=== PATIENT | female | born 1960 | race Caucasian/White ===

== ENCOUNTER → 2020-09-23 | Outpatient (CLI) | payer OTHER ==
[~2020-09-23] MED LIST: ALBU90OI6; ALBU90OI61 INH; AZIT250 PO; ESCI10 PO; FLORADIL; FLUSAL2505 INH; FLUT220OIA; LISI20 PO; LISI5; PRED10 PO; PRIM50; [UNRECOGNIZED DRUG - OTHER]; [UNRECOGNIZED DRUG - OTHER]
== END ==
LOC: LAB SHORT 16:56 → LAB EV 16:56
DX: S41.102A Unspecified open wound of left upper arm, initial encounter (principal)
CPT/HCPCS: 87070; 87075; 87077; 87186; 87205

== ENCOUNTER 2021-12-20 18:12 | Emergency (ER) | payer OTHER ==
[~2021-12-20] VITALS: Ht 160 cm; Wt 113.8 kg
[~2021-12-20 18:12] MED LIST changes: -ALBU90OI INH; -CYCLOBENZAPRINE5 MG PO; -LIDO700A20 TOP
[2021-12-21] MEDS ORDERED: CYCLOBENZAPRINE5 MG PO ×2 (00:49→00:53)
[2021-12-21] MEDS ORDERED: LIDO700A20 TOP ×2 (00:49→00:53)
[2021-12-21] MEDS ORDERED: ALBU90OI INH ×2 (00:49→00:53)
[2021-12-21 01:12] LABS: Influenza A, PCR NEGATIVE (NEGATIVE); Influenza B, PCR NEGATIVE (NEGATIVE); Resp Syncytial Virus, PCR NEGATIVE (NEGATIVE); SARS-Cov-2 (COVID-19) PCR, MMC NEGATIVE (NEGATIVE)
== END 2021-12-21 01:14 | disposition home or self-care (01) ==
LOC: ER 18:12
PROVIDERS: Student in an Organized Health Care Education/Training Program
DX: R07.9 Chest pain, unspecified (principal); R06.02 Shortness of breath; J18.9 Pneumonia, unspecified organism; I10 Essential (primary) hypertension; Z79.899 Other long term (current) drug therapy; Z88.0 Allergy status to penicillin; Z88.1 Allergy status to other antibiotic agents
CPT/HCPCS: 0241U; 71260; 83880; 84484; 93005; 93010; 96374; 99284-25; A9270; J2405; J3010; Q9967

== ENCOUNTER → 2021-12-20 | Outpatient (CLI) | payer OTHER ==
[~2021-12-20] MED LIST changes: +ALBU90OI INH; +CYCLOBENZAPRINE5 MG PO; +LIDO700A20 TOP
[2021-12-20 15:47] LABS: BASOPHILS ABSOLUTE AUTO 0.05 K/mm3 (0.00-0.23); BASOPHILS PERCENT AUTO 0 % (0-2); EOSINOPHILS ABSOLUTE AUTO 0.38 K/mm3 (0.00-0.68); EOSINOPHILS PERCENT AUTO 3 % (0-6); Hematocrit 43.4 % (33.0-51.0); Hemoglobin 15.1 g/dL (11.5-16.0); IMMATURE GRAN ABSOLUTE AUTO 0.06 K/mm3 (0.00-0.10); IMMATURE GRAN PERCENT AUTO 0 % (0-1); LYMPHOCYTES ABSOLUTE AUTO 0.85 K/mm3 (0.84-5.20); LYMPHOCYTES PERCENT AUTO 6 % (21-46); MONOCYTES ABSOLUTE AUTO 1.03 K/mm3 (0.16-1.47); MONOCYTES PERCENT AUTO 8 % (4-13); Mean Corpuscular HGB 30.6 pg (26.0-34.0); Mean Corpuscular HGB Conc 34.8 g/dL (31.5-36.5); Mean Corpuscular Volume 88 fL (80-100); NEUTROPHILS ABSOLUTE AUTO 11.12 K/mm3 (1.96-9.15); NEUTROPHILS PERCENT AUTO 83 % (41-73); Platelet Count 289 K/mm3 (150-400); RDW Coefficient Variation 14.7 % (11.7-14.2); RDW Standard Deviation 46.9 fL (35.1-46.3); Red Blood Cell Count 4.94 M/mm3 (3.80-5.20); White Blood Cell Count 13.49 K/mm3 (4.00-11.30)
[2021-12-20 16:06] LABS: Bun/Creatinine Ratio 39.2 (12.0-20.0); Calcium, Blood 9.1 mg/dL (8.5-10.1); Creatinine, Blood 0.74 mg/dL (0.40-1.00); Potassium, Blood 3.9 mmol/L (3.5-5.5); Thyroid Stimulating Hormone 0.798 uIU/mL (0.360-4.800)
== END | disposition home or self-care (01) ==
LOC: LAB SHORT 15:42 → LAB 15:42
PROVIDERS: Physician Assistant Surgical
DX: R07.81 Pleurodynia (principal); R53.83 Other fatigue
CPT/HCPCS: 80048; 84443; 84484; 85025; 85379